=== PATIENT | female | born 1995 | race Caucasian/White ===

== ENCOUNTER 2019-02-24 16:45 | Emergency (ER) | payer BC ==
[2019-02-24] MEDS ORDERED: NS 0.9% 1000 ML** 1,000 ML IV ONE (22:49)
[2019-02-24] MEDS ORDERED: Metoclopramide IV* 5 MG/ML 2 ML VIAL IV ONE (22:49)
[2019-02-24] MEDS ORDERED: diPHENhydraMINE IV* 50 MG/ML 1 ml VIAL (BENADRYL) IV ONE (22:49)
[2019-02-24] MEDS ORDERED: Acetaminophen TAB* 325 MG PO ONE (22:50)
--- NOTE | 2019-02-24 22:51 | ED ---
Headache - HPI Summary HPI Summary: Patient with history of migraine 2 weeks presents for imaging to rule out aneurysm per neurology EBONY Padilla. Patient complains of progressive headache, persistent dizziness, nausea 3 weeks. Negative brain MRI with and without contrast on 02/16/19. Family history of aneurysm. Patient denies fever , cough, sore throat, CP, SOB, V/D, abdominal pain, change in urine, change in BM. Medical history is migraines. - History Of Current Complaint Chief Complaint: EDHeadache Stated Complaint: HEADACHE PER PT Time Seen by Provider: 02/24/19 22:25 Hx Obtained From: Patient, Family/[employer]ing [employer] Receiver Onset/Duration: Gradual Onset, Started weeks ago Initially Headache Was: Moderate Currently Pain Is: Moderate Timing: Constant Character: Throbbing Location of Headache: Frontal Aggravating Factor: Position Change, Bright Lights Allevating Factors: Rest Associated Signs And Symptoms: Dizziness, Nausea - Allergies/Home Medications Allergies/Adverse Reactions: Allergies Allergy/AdvReac Type Severity Reaction Status Date / Time shellfish derived Allergy GI Upset/ Verified 02/24/19 16:51 ITCHY THROAT PMH/Surg Hx/FS Hx/Imm Hx Endocrine/Hematology History: Denies: Hx Anticoagulant Therapy, Hx Diabetes, Hx Thyroid Disease Cardiovascular History: Denies: Hx Hypotension, Hx Hypertension, Hx Pacemaker/ICD, Hx Valvular Heart Disease Respiratory History: Denies: Hx Asthma GI History: Denies: Hx Gastroesophageal Reflux Disease, Hx Irritable Bowel History: Denies: Hx Acute Renal Failure, Hx Kidney Infection, Hx Renal Disease, Other Problems/Disorders Musculoskeletal History: Reports: Hx Back Problems Sensory History: Denies: Hx Hearing Aid Opthamlomology History: Denies: Hx Eye Prosthesis EENT History: Denies: Hx Deafness Neurological History: Denies: Hx Dementia Psychiatric History: Denies: Hx Anxiety, Hx Attention Deficit Hyperactivity Disorder, Hx Depression, Hx Panic Disorder - Surgical History Surgery Procedure, Year, and Place: WISDOM TEETH. NERVE BLOCKS Infectious Disease History: No Infectious Disease History: Denies: Traveled Outside the [place] in Last 30 Days - Family History Known Family History: Positive: None - Social History Alcohol Use: None Hx Substance Use: No Substance Use Type: Reports: None Smoking Status (MU): Never Smoked Tobacco Review of Systems Constitutional: Negative Positive: Photophobia, Blurred Vision ENT: Negative Cardiovascular: Negative Respiratory: Negative Positive: Nausea Genitourinary: Negative Musculoskeletal: Negative Skin: Negative Positive: Headache Psychological: Normal All Other Systems Reviewed And Are Negative: Yes Physical Exam Triage Information Reviewed: Yes Vital Signs On Initial Exam: Initial Vitals Temp Pulse Resp BP Pulse Ox 98.3 F 87 16 142/99 99 02/24/19 16:50 02/24/19 16:50 02/24/19 16:50 02/24/19 16:50 02/24/19 16:50 Vital Signs Reviewed: Yes Appearance: Positive: Well-Appearing Skin: Positive: Warm Head/Face: Positive: Normal Head/Face Inspection Eyes: Positive: Normal ENT: Positive: Normal ENT inspection Neck: Positive: Supple Respiratory/Lung Sounds: Positive: Clear to Auscultation Cardiovascular: Positive: Normal Abdomen Description: Positive: Nontender Musculoskeletal: Positive: Normal Neurological: Positive: Normal Psychiatric: Positive: Normal AVPU Assessment: Alert - [place] Coma Scale Best Eye Response: 4 - Spontaneous Best Motor Response: 6 - Obeys Commands Best Verbal Response: 5 - Oriented Coma Scale Total: 15 Procedures - Sedation Patient Received Moderate/Deep Sedation with Procedure: No Diagnostics - Vital Signs Vital Signs Temp Pulse Resp BP Pulse Ox 02/24/19 22:33 98 127/77 98 02/24/19 20:45 97.9 F 77 16 128/78 98 02/24/19 18:40 97.8 F 72 15 127/77 99 02/24/19 16:50 98.3 F 87 16 142/99 99 - Laboratory Result Diagrams: 02/24/19 23:31 02/24/19 23:31 Lab Statement: Any lab studies that have been ordered have been reviewed, and results considered in the medical decision making process. Headache Course/Dx - Course Course Of Treatment: Patient with history of migraine 2 weeks presents for imaging to rule out aneurysm per neurology EBONY Padilla. Patient complains of progressive headache, persistent dizziness, nausea 3 weeks. Negative brain MRI with and without contrast on 02/16/19. Family history of aneurysm. Patient denies fever, cough, sore throat, CP, SOB, V/D, abdominal pain, change in urine, change in BM. Medical history is migraines. Vital signs within normal limits. Labs unremarkable. CTA head and neck unremarkable. Headache improved moderately with GI cocktail. Rx for Zofran. Patient has follow-up appointment with neurology on Wednesday. - Diagnoses Provider Diagnoses: Persistent headaches Discharge ED - Sign-Out/Discharge Documenting (check all that apply): Patient Departure - Discharge Plan Condition: Stable Disposition: HOME Prescriptions: Ondansetron ODT TAB* [Zofran 4 MG Odt TAB*] 4 mg PO Q8H PRN 4 Days #14 tab.odt PRN Reason: Nausea Patient Education Materials: Migraine Headache (ED) Referrals: No Primary Care Phys,NOPCP [Primary Care Provider] - Additional Instructions: Follow-up with your neurologist. Return to the ED for any new or worsening symptoms. - Billing Disposition and Condition Condition: STABLE Disposition: Home
[2019-02-24 23:46] LABS: ABS Eosinophils 0.6 10^3/ul (0-0.6); ABS Lymphocytes 3.6 10^3/ul (1.0-4.8); ABS Neutrophils 3.8 10^3/ul (1.5-7.7); Eosinophil % 6.9 %; Hematocrit 40 % (35-47); Lymphocyte % 39.8 %; Mean Corpuscular HGB Conc 35 g/dL (31-36); Mean Corpuscular Hemoglobin 30 pg (27-31); Mean Corpuscular Volume 87 fL (80-97); Mean Platelet Volume 8.8 fL (7.4-10.4); Nucleated Red Blood Cells % 0.1; Platelet Count 214 10^3/uL (150-450); Red Blood Count 4.62 10^6 /uL (3.70-4.87); Red Cell Distribution Width 12 % (10-15); White Blood Count 9.1 10^3/uL (3.5-10.8)
[2019-02-24 23:55] LABS: ALT 19 U/L (7-52); AST 16 U/L (13-39); Albumin 4.3 g/dL (3.2-5.2); Albumin/Globulin Ratio 1.6 (1-3); Alkaline Phosphatase 57 U/L (34-104); Anion Gap 7 mmol/L (2-11); BUN/Creatinine Ratio 9.9 (8-20); Blood Urea Nitrogen 10 mg/dL (6-24); C Reactive Protein < 1.00 mg/L (<8.01); CO2 Carbon Dioxide 27 mmol/L (22-32); Calcium 9.3 mg/dL (8.6-10.3); Chloride 104 mmol/L (101-111); EGFR African American 83.7 (>60); EGFR Non-African American 69.2 (>60); Globulin 2.7 g/dL (2-4); Glucose 112 mg/dL (70-100); Potassium 3.6 mmol/L (3.5-5.0); Sodium 138 mmol/L (135-145)
[2019-02-25 00:02] LABS: HCG Pregnancy < 0.60 mIU/mL
[2019-02-25] MEDS ORDERED: Iohexol 350* (CONTRAST) 500 ML MDV IV ONE (00:04)
[2019-02-25 01:52] VITALS: BP 123/78
== END 2019-02-25 01:51 | disposition home or self-care (01) ==
LOC: ED 16:45
DX: R51 Headache (principal); E04.1 Nontoxic single thyroid nodule
CPT/HCPCS: 36415; 70496; 70498; 80053; 84702; 85025; 86140; 96361; 96374; 96375; 99283; A9270-GY; J1200; J2765; Q9967

== ENCOUNTER 2019-03-27 12:37 | Emergency (ER) | payer BC ==
[2019-03-27 15:18] LABS: ABS Eosinophils 0.2 10^3/ul (0-0.6); ABS Lymphocytes 2.1 10^3/ul (1.0-4.8); ABS Monocytes 0.6 10^3/ul (0-0.8); Eosinophil % 2.4 %; Hematocrit 40 % (35-47); Hemoglobin 13.8 g/dL (12.0-16.0); Lymphocyte % 29.7 %; Mean Corpuscular HGB Conc 35 g/dL (31-36); Mean Corpuscular Hemoglobin 30 pg (27-31); Mean Corpuscular Volume 87 fL (80-97); Mean Platelet Volume 9.1 fL (7.4-10.4); Nucleated Red Blood Cells % 0.1; Platelet Count 198 10^3/uL (150-450); Red Blood Count 4.53 10^6 /uL (3.70-4.87); Red Cell Distribution Width 13 % (10-15); White Blood Count 6.9 10^3/uL (3.5-10.8)
[2019-03-27 15:57] LABS: Albumin 4.2 g/dL (3.2-5.2); Anion Gap 7 mmol/L (2-11); CO2 Carbon Dioxide 26 mmol/L (22-32); Calcium 9.3 mg/dL (8.6-10.3); Chloride 105 mmol/L (101-111); Potassium 4.1 mmol/L (3.5-5.0); Sodium 138 mmol/L (135-145)
[2019-03-27 16:03] LABS: ALT 28 U/L (7-52); AST 22 U/L (13-39); Albumin/Globulin Ratio 1.5 (1-3); Alkaline Phosphatase 50 U/L (34-104); BUN/Creatinine Ratio 8.8 (8-20); Blood Urea Nitrogen 8 mg/dL (6-24); C Reactive Protein < 1.00 mg/L (<8.01); EGFR African American 94.4 (>60); Globulin 2.8 g/dL (2-4); Glucose 86 mg/dL (70-100)
--- NOTE | 2019-03-27 16:10 | ED ---
Headache - HPI Summary HPI Summary: This pt is a 23 y/o female, accompanied by mother and father, presenting [facility] c/o migraine for the past 8 weeks. Pt describes a constant headache but notes it is waxing and waning in severity. She describes her headache mostly on the left frontal side. She reports unequal pupils that began initially as occasionally depending on different lightning, but since 3 days ago it has been almost constant. Mother noticed patient's unequal pupils 1 week ago. Additionally pt reports tinnitus, bilateral ear pain, feeling internally burning hot from head to toe, photophobia, stiff neck (for the past 4-5 weeks), one episode of rash on her chest. Pt went to her school PCP to get her ears checked out and was referred to the ED due to unequal pupils. Today while in the waiting room pt states she had a sharp shooting pain on her left lower posterior head and eyes "almost went black" feeling like passing out. She notes she had her blood pressure taken and it was elevated. Currently she rates her headache 3/10 in severity, and states her migraine is actually better today than it has been. Pt went to see an food services manager 2 weeks ago and was told her optic nerves looked fine. FHx: father and paternal uncle with brain aneurysm. LMP: yesterday. Pt has been following up with Dr. Gardiner for nerve pain for the past 6 years. Her medications include migraine PRN medication, antiemetic, and Depakote (which she has taken for years but recently increased her dose). She has an upcoming lumbar puncture scheduled for next week though [facility] and has an upcoming appointment with Daren Padilla NP on 04/30/18. Pt states there have been some talk about being worked up for MS. - History Of Current Complaint Chief Complaint: EDHeadache Stated Complaint: MIGRAINE FOR 8 WEEKS/EAR PAIN/RASH PER PT Time Seen by Provider: 03/27/19 14:51 Hx Obtained From: Patient Onset/Duration: Started weeks ago - 8 Timing: Constant Character: Migraine Location of Headache: Frontal - left sided Aggravating Factor: Nothing Allevating Factors: Nothing Associated Signs And Symptoms: Neck Stiffness, Other (Noted In Comments) - POSITIVE: unequal pupils, photophobia - Allergies/Home Medications Allergies/Adverse Reactions: Allergies Allergy/AdvReac Type Severity Reaction Status Date / Time shellfish derived Allergy GI Upset/ Verified 03/27/19 12:40 ITCHY THROAT Home Medications: Home Medications Butalb/Acetamin/Caff TAB* [Fioricet TAB*] 1 tab PO Q6H PRN 03/27/19 [History Confirmed 03/27/19] Divalproex Sodium [Depakote] 750 mg PO BID 03/27/19 [History Confirmed 03/27/19] Norethindrone-E.estradiol-Iron [Junel Fe 05/08 1-20 mg-Mcg] 1 tab PO DAILY [History Confirmed 03/27/19] PMH/Surg Hx/FS Hx/Imm Hx Endocrine/Hematology History: Denies: Hx Anticoagulant Therapy, Hx Diabetes, Hx Thyroid Disease Cardiovascular History: Denies: Hx Hypotension, Hx Hypertension, Hx Pacemaker/ICD, Hx Valvular Heart Disease Respiratory History: Denies: Hx Asthma GI History: Denies: Hx Gastroesophageal Reflux Disease, Hx Irritable Bowel History: Denies: Hx Acute Renal Failure, Hx Kidney Infection, Hx Renal Disease, Other Problems/Disorders Musculoskeletal History: Reports: Hx Back Problems Sensory History: Denies: Hx Eye Prosthesis, Hx Deafness, Hx Hearing Aid Opthamlomology History: Denies: Hx Eye Prosthesis Neurological History: Denies: Hx Dementia Psychiatric History: Denies: Hx Anxiety, Hx Attention Deficit Hyperactivity Disorder, Hx Depression, Hx Panic Disorder - Surgical History Surgical History: Yes Surgery Procedure, Year, and Place: WISDOM TEETH. NERVE BLOCKS Infectious Disease History: No Infectious Disease History: Denies: Traveled Outside the [place] in Last 30 Days - Family History Family History: Father and paternal uncle with brain aneurysm - Social History Alcohol Use: Occasionally Hx Substance Use: No Substance Use Type: Reports: None Smoking Status (MU): Never Smoked Tobacco Review of Systems Negative: Fever, Chills Eyes: Other - POSITIVE: unequal pupils Positive: Photophobia. Negative: Erythema ENT: Other - POSITIVE: tinnitus Positive: Ear Ache. Negative: Sore Throat Negative: Chest Pain Negative: Shortness Of Breath, Cough Negative: Abdominal Pain, Vomiting, Nausea Negative: dysuria, hematuria Negative: Myalgia, Edema Negative: Rash Neurological: Other - NEGATIVE: dizziness Positive: Headache All Other Systems Reviewed And Are Negative: Yes Physical Exam - Summary Physical Exam Summary: Constitutional: Well-developed, Well-nourished, Alert. (-) Distressed Skin: Warm, Dry HENT: Normocephalic; Atraumatic Eyes: Conjunctiva normal. Anisocoria, right pupils is 6 mm and left one is 2 mm , but both pupils are reactive to light. Neck: Musculoskeletal ROM normal neck. (-) JVD, (-) Stridor, (-) Tracheal deviation Cardio: Rhythm regular, rate normal, Heart sounds normal; Intact distal pulses; The pedal pulses are 2+ and symmetric. Radial pulses are 2+ and symmetric. (-) Murmur Pulmonary/Chest wall: Effort normal. (-) Respiratory distress, (-) Wheezes, (-) Rales Abd: Soft. (-) Tenderness, (-) Distension, (-) Guarding, (-) Rebound Musculoskeletal: (-) Edema Lymph: (-) Cervical adenopathy Neuro: Alert, Oriented x3, Strength normal, Cranial nerves II-XII are grossly intact. (-) Dysmetria, (-) Nystagmus, (-) Ataxia by finger to nose testing, (-) Sensory deficit. Psych: Mood and affect Normal GCS: 15 Triage Information Reviewed: Yes Vital Signs On Initial Exam: Initial Vitals Temp Pulse Resp BP Pulse Ox 98.5 F 132 19 162/103 100 03/27/19 12:38 03/27/19 12:38 03/27/19 12:38 03/27/19 12:38 03/27/19 12:38 Vital Signs Reviewed: Yes Procedures - Sedation Patient Received Moderate/Deep Sedation with Procedure: No Diagnostics - Vital Signs Vital Signs Temp Pulse Resp BP Pulse Ox 03/27/19 15:38 80 124/67 97 03/27/19 15:08 94 115/75 99 03/27/19 15:00 90 98 03/27/19 14:38 98 123/71 98 03/27/19 14:08 96 133/85 99 03/27/19 14:00 96 97 03/27/19 13:37 111 142/91 97 03/27/19 12:38 98.5 F 132 19 162/103 100 - Laboratory Lab Results: Lab Results 03/27/19 03/27/19 Range/Units 15:10 15:10 WBC 6.9 (3.5-10.8) 10^3/uL RBC 4.53 (3.70-4.87) 10^6 /uL Hgb 13.8 (12.0-16.0) g/dL Hct 40 (35-47) % MCV 87 (80-97) fL MCH 30 (27-31) pg MCHC 35 (31-36) g/dL RDW 13 (10-15) % Plt Count 198 (150-450) 10^3/uL MPV 9.1 (7.4-10.4) fL Neut % (Auto) 58.6 % Lymph % (Auto) 29.7 % Randolph % (Auto) 8.6 % Eos % (Auto) 2.4 % Baso % (Auto) 0.7 % Absolute Neuts (auto) 4.0 (1.5-7.7) 10^3/ul Absolute Lymphs (auto) 2.1 (1.0-4.8) 10^3/ul Absolute Monos (auto) 0.6 (0-0.8) 10^3/ul Absolute Eos (auto) 0.2 (0-0.6) 10^3/ul Absolute Basos (auto) 0.0 (0-0.2) 10^3/ul Absolute Nucleated RBC 0.0 10^3/ul Nucleated RBC % 0.1 Sodium 138 (135-145) mmol/L Potassium 4.1 (3.5-5.0) mmol/L Chloride 105 (101-111) mmol/L Carbon Dioxide 26 (22-32) mmol/L Anion Gap 7 (2-11) mmol/L BUN Pending Creatinine Pending Est GFR ( Amer) Pending Est GFR (Non-Af Amer) Pending BUN/Creatinine Ratio Pending Glucose Pending Calcium 9.3 (8.6-10.3) mg/dL Magnesium 2.0 (1.9-2.7) mg/dL Total Bilirubin 0.30 (0.2-1.0) mg/dL AST Pending ALT Pending Alkaline Phosphatase Pending C-Reactive Protein Pending Total Protein Pending Albumin 4.2 (3.2-5.2) g/dL Globulin Pending Albumin/Globulin Ratio Pending TSH Pending Result Diagrams: 03/27/19 15:10 03/27/19 15:10 Lab Statement: Any lab studies that have been ordered have been reviewed, and results considered in the medical decision making process. - CT Brain CT CT Interpretation Completed By: Radiologist Summary of CT Findings: IMPRESSION: Normal CT of the brain. Dr. Plummer has reviewed this report. - EKG 15:10 Cardiac Rate: NL - at 85 bpm EKG Rhythm: Sinus Rhythm Summary of EKG Findings: EKG at 1510 shows sinus rhythm at a rate of 85 bpm. No STEMI. Re-Evaluation - Re-Evaluation First Eval Re-Evaluation Time: 18:01 Comment: Discussed results with patient and parents. She was advised to follow up with her PCP. Headache Course/Dx - Course Assessment/Plan: Pt is a 23 y/o female, accompanied by mother and father, presenting to [facility] c/o migraine for the past 8 weeks. Pt describes a constant headache but notes it is waxing and waning in severity. She describes her headache mostly on the left frontal side. She reports unequal pupils that began initially as occasionally depending on different lightning, but since 3 days ago it has been almost constant. Mother noticed patient's unequal pupils 1 week ago. Additionally pt reports tinnitus, bilateral ear pain, feeling internally burning hot from head to toe, photophobia, stiff neck (for the past 4-5 weeks), one episode of rash on her chest. Pt is being followed up by Dr. Gardiner and has an LP scheduled next week. Reviewed medical records and Brain CT on 02/25/19 with no findings. Discussed the case with Dr. Gardiner, neurologist, who agrees with further outpatient management and with keeping her scheduled lumbar puncture. There is no indication for ED imaging or procedure. Lab results are unremarkable. Brain CT is negative. In the ED course the pt was given magnesium sulfate. She has been worked up for an aneurysm, no features for subarachnoid hemorrhage. Do not suspect meningitis. Lumbar puncture is scheduled for next week. Normal optic discs per her opthalmologist. Discussed delayed antibiotics if she continues to have left ear symptoms. Patient will be discharged home with follow up from her PCP for left otitis media. - Diagnoses Provider Diagnoses: Headache, Left otitis media - Physician Notifications Discussed Care Of Patient With: Carlos Enrique Gardiner Time Discussed With Above Provider: 16:23 Instructed by Provider To: Other - Discussed the case with Dr. Gardiner, neurologist , who agrees with further outpatient management and with keeping her scheduled lumbar puncture. Discharge ED - Sign-Out/Discharge Documenting (check all that apply): Patient Departure - Discharge home - Discharge Plan Condition: Stable Disposition: HOME Patient Education Materials: Ear Infection (ED), General Headache (ED) Referrals: [facility] [Primary Care Provider] - Additional Instructions: Follow up with your primary care provider regarding your left otitis media (ear infection). RETURN TO THE EMERGENCY DEPARTMENT FOR CHANGING OR WORSENING SYMPTOMS. - Attestation Statements Document Initiated by Scribe: Yes Documenting Scribe: Elizabet Verde Provider For Whom Scribe is Documenting (Include Credential): Jamey Plummer MD Scribe Attestation: Elizabet Bonilla, scribed for Jamey Plummer MD on 03/27/19 at 1802. Status of Scribe Document: Ready
[2019-03-27] MEDS ORDERED: Magnesium Sulfate 2 GM IV* 2 GM/50 ML BAG IVPB ONE (16:13)
[2019-03-27 16:22] LABS: TSH (Thyroid Stimulating Horm) 1.05 mcIU/mL (0.34-5.60)
[2019-03-27 18:12] VITALS: BP 117/71
== END 2019-03-27 18:11 | disposition home or self-care (01) ==
LOC: ED 12:37
DX: R51 Headache (principal); H66.92 Otitis media, unspecified, left ear; Z79.899 Other long term (current) drug therapy
CPT/HCPCS: 36415; 70450; 80053; 83605; 83735; 84443; 85025; 86140; 93005; 96365; 99283; J3475